=== PATIENT | male | born 1990 | race Caucasian/White ===

== ENCOUNTER 2020-02-16 17:17 | Emergency (ER) | payer OTHER ==
[~2020-02-16] VITALS: Ht 170.2 cm; Wt 113.4 kg
[2020-02-16 17:20] VITALS: BP 140/74; Ht 170.2 cm; Wt 113.4 kg
== END 2020-02-16 17:31 | disposition other institution (70) ==
LOC: ED 17:17
DX: Z02.89 Encounter for other administrative examinations (principal)

== ENCOUNTER 2020-03-28 12:50 | Emergency (ER) | payer OTHER | END 2020-03-28 16:52 | disposition other institution (70) | LOC: ED 12:50 | DX: Z02.89 Encounter for other administrative examinations (principal) ==

== ENCOUNTER 2020-03-28 12:50 | Emergency (ER) | payer SELFPAY ==
[~2020-03-28] VITALS: Ht 177.8 cm; Wt 136.1 kg
[2020-03-28 12:53] VITALS: Ht 177.8 cm; Wt 136.1 kg
--- NOTE | 2020-03-28 13:20 | NUR ---
PT REFUSED ABG.
[2020-03-28 14:32] LABS: microscopic required? NO
[2020-03-28 14:48] LABS: UA SPECIFIC GRAVITY 1.015 (1.005-1.035); urine erythrocyte NEGATIVE (NEGATIVE)
[2020-03-28 14:52] LABS: BASOPHIL % 0.3 % (0-2); PLATELET COUNT 200 x10^3mcL (130-400); RED CELL DISTRIBUTION WIDTH 14.1 % (11.5-14.5)
[2020-03-28 15:15] LABS: CALCIUM 8.3 mg/dL (8.5-10.1); CARBON DIOXIDE 30.4 mmol/L (21-32); CHLORIDE SERUM 100 mmol/L (98-107); CREATININE SERUM 0.8 mg/dL (0.7-1.3); GFR1 > 60 mL/min; GLUCOSE SERUM 101 mg/dL (74-106); POTASSIUM SERUM 3.9 mmol/L (3.5-5.1); SODIUM SERUM 134 mmol/L (136-145)
[2020-03-28 15:21] LABS: AMPHETAMINE QUAL UR POSITIVE (See below)
[2020-03-28 15:26] LABS: T3 TOTAL 0.95 ng/mL
[2020-03-28 15:35] LABS: ALBUMIN 3.5 g/dL (3.4-5.0); ALKALINE PHOSPHATASE 81 U/L (46-116); ALT/SGPT 21 U/L (16-63); AST/SGOT 18 U/L (15-37); BILIRUBIN TOTAL 0.41 mg/dL (0.20-1.00); TOTAL PROTEIN, SERUM 7.5 g/dL (6.4-8.2)
[2020-03-28 15:55] LABS: FREE T4 1.14 ng/dL (0.76-1.46); FREE THYROXINE INDEX 2.6 ug/dL (1.4-4.5); T4(THYROXINE) 6.4 ug/dL (4.7-13.3)
[2020-03-28 16:16] VITALS: BP 146/90
== END 2020-03-28 16:52 | disposition other institution (70) ==
LOC: ED 12:50
PROVIDERS: Specialist
DX: E86.0 Dehydration (principal); F31.9 Bipolar disorder, unspecified; F15.10 Other stimulant abuse, uncomplicated; Z20.828 Contact with and (suspected) exposure to other viral communicable diseases; Z88.1 Allergy status to other antibiotic agents
CPT/HCPCS: 82962; 84439; G0480; J7030; Q0092; U0003

== ENCOUNTER 2020-04-14 17:30 | Emergency (ER) | payer OTHER ==
[~2020-04-14] VITALS: Ht 177.8 cm; Wt 136.1 kg
[2020-04-14 17:39] VITALS: Ht 177.8 cm; Wt 136.1 kg
[2020-04-14 19:14] VITALS: BP 107/64
== END 2020-04-14 19:14 | disposition other institution (70) ==
LOC: ED 17:30
DX: F19.129 Other psychoactive substance abuse with intoxication, unspecified (principal); F20.9 Schizophrenia, unspecified
CPT/HCPCS: Q0163

== ENCOUNTER 2020-04-14 17:30 | Emergency (ER) | payer OTHER | END 2020-04-14 19:14 | disposition other institution (70) | LOC: ED 17:30 | DX: Z02.89 Encounter for other administrative examinations (principal) ==